=== PATIENT | female | born 1945 | race Two or more races ===

== ENCOUNTER 2022-11-05 22:28 | Emergency (ER) | payer OTHER ==
[~2022-11-05] VITALS: Ht 162.6 cm; Wt 68.0 kg
[2022-11-05 22:28] VITALS: BP 166/85
[2022-11-05 23:24] LABS: Basophils # (auto) 0.4 10 ^3/uL (0-0.2); Eosinophils # (auto) 0.3 10 ^3/uL (0-0.8); Eosinophils % (auto) 3.5 % (0.0-7.0); Hematocrit 43.2 % (36.0-46.0); Hemoglobin 14.3 g/dL (12.2-16.2); Lymphocytes # (auto) 1.8 10 ^3/uL (0.4-5.4); Lymphocytes % (auto) 22.3 % (10.0-50.0); Mean Corpuscular Hemoglobin 28.4 pg (28.0-32.0); Mean Corpuscular Hgb Conc. 33.1 g/dL (32.0-36.0); Mean Corpuscular Volume 85.6 fL (80.0-100.0); Monocytes # (auto) 0.5 10 ^3/uL (0-1.3); Monocytes % (auto) 6.5 % (0.0-12.0); Neutrophils % (auto) 62.7 % (37.0-80.0); Red Blood Cells 5.04 10^6/uL (4.0-5.20); Red Cell Distribution Width 13.2 % (11.8-14.3); White Blood Cell 7.9 10^3/uL (4.4-10.8)
[2022-11-05] MEDS ORDERED: ACETAMINOPHEN 500 MG TAB PO ONE (23:30)
[2022-11-05 23:41] LABS: Albumin 3.6 g/dL (3.4-5.0); BUN/Creatinine Ratio 20.2 (10.0-20.0); Calcium 10.4 mg/dL (8.5-10.1); Potassium 3.9 mmol/L (3.5-5.1)
[2022-11-05 23:43] LABS: Bilirubin, Total 0.4 mg/dL (0.2-1.0)
[2022-11-05 23:50] LABS: Urine Bacteria MOD /hpf (None Seen); Urine Blood Negative /uL (Negative); Urine Specific Gravity 1.012 (1.001-1.035); Urine WBC 3 /hpf (0 - 5)
[2022-11-06] MEDS ORDERED: PROCHLORPERAZINE MALEATE 10 MG TAB PO ONE (01:30)
[2022-11-06] MEDS ORDERED: traMADol HCL 50 MG TAB PO ONE (01:30)
[2022-11-06] MEDS ORDERED: ACETAMINOPHEN 325 MG TAB PO ONE (01:30)
[2022-11-06] MEDS ORDERED: SODIUM CHLORIDE 0.9% 1,000 ML IV ONE (01:30)
== END 2022-11-06 03:00 | disposition left against medical advice (07) ==
LOC: ER 22:28
DX: S00.03XA Contusion of scalp, initial encounter (principal); M25.511 Pain in right shoulder; W18.39XA Other fall on same level, initial encounter; Y93.89 Activity, other specified; Y92.89 Other specified places as the place of occurrence of the external cause; Y99.8 Other external cause status
CPT/HCPCS: 36415; 70450; 71250; 72125; 73030; 74176; 80053; 81001; 84484; 85025